=== PATIENT | male | born 1990 | race Asian ===

== ENCOUNTER 2022-09-16 13:52 | Emergency (ER) | payer OTHER ==
--- OUTSIDE RECORDS SUMMARY | 2022-09-16 13:57 | XMS REPORT | Continuity of Care Document ---
:[address] [facility] t Address [address] [place] [address] [address] [place] [address] Care Team Providers Name Role Phone PCP, PATIENT DOES NOT HAVE A Primary Care Physician Roma Javed Tadeo Attending Clinician Chiquis Kwok DO Attending Clinician [phone] Tiburcio DALTON, Ingrid Plascencia Attending Clinician CHIQUIS KWOK Attending Clinician Unavailable Ingrid Dey MD Admitting Clinician INGRID DEY Admitting Clinician Unavailable Payers Payer Name Policy Type Policy Number Effective Date Expiration Date S ource ICF [id number] 2020 00:00:00 2020 00:00 :00 Problems Condition Condition Condition Status Onset Resolution Last Treating Co mments Source Name Details Category Date Date Treatment Clinician Date Accidental Accidental Disease Active U nivers poisoning poisoning 2-16 ity of by [place] monoxide, monoxide, 00 Medi carolyn initial initial Branch encounter encounter Allergies, Adverse Reactions, Alerts Allergy Allergy Status Severity Reaction(s) Onset Inactive Treating Comm ents Source Name Type Date Date Clinician NO KNOWN Drug Active Univers ALLERGIE Class ity of S [facility] Social History Social Habit Start Date Stop Date Quantity Comments Source Sex Assigned At Universit y of [facility] Exposure to Not sure [facility] SARS-CoV-2 [facility] (event) [place] Alcohol intake 2020-11-05 2020-11-05 Ex-drinker [facility] 00:00:00 00:00:00 (finding) [facility] Smoking Status Start Date Stop Date Source Never smoker [facility] Medications Ordered Filled Start Stop Current Ordering Indication Dosage Frequency Signature Comments Components Source Medication Medication Date Date Medication? Clinician (SIG) Name Name enoxaparin Yes 40mg 40 mg, Unive rs (LOVENOX) 11-05 Subcutaneo ity of [place] 15:00[place] 00 First dose Medical on [facility] 11/05/20 at 0900, Until Discontinu ed, Routine ondansetron Yes 4mg 4 mg, Slow Univers (ZOFRAN 11-05 IV Push, ity of (PF)) 06:54: Q8HPRN, [place] injection 4 25 Starting Medi carolyn mg [facility] 11/05/20 at 0054, Until Discontinu ed, Routine, Nausea and Vomiting (N/V) albuterol Yes 2.5mg 2.5 mg, Univ ers (PROVENTIL) 11-05 Inhalation it y of 2.5 mg /3 06:01: , Q4HPRN, [place] as mL (0.083 48 Starting Medica l %) [facility] nebulizer 11/05/20 at solution 0001, 2.5 mg Until Discontinu ed, Routine, Shortness of Breath, Wheezing acetaminoph Yes 325mg 325 mg, Un isak en 11-05 Oral, ity of (TYLENOL) 06:01: Q6HPRN, [place] tablet 325 38 Starting Medic al mg [facility] 11/05/20 at 0001, Until Discontinu ed, Routine, Temp > 38.5 C iohexol 2020- No 120mL 120 mL, Unive rs (OMNIPAQUE 11-05 Intravenou it y of 350 02:54: 02:54 s, ONCE, 1 [place] BULK-150 00 :00 dose, Tue Medica l mL) 11/04/20 at Branch injection 2115, 120 mL Routine NaCl 0.9% 2020- No 1000mL at 999 Uni vers (NS) bolus 11-05 mL/hr, ity of infusion 00:00: 04:30 1,000 mL, [place] as 1,000 mL 00 :00 IV Medical Infusion, Branch ONCE, 1 dose, 11/04/20 at 1800, JENNIFER No known No Univers medications ity of [facility] Vital Signs Vital Name Observation Time Observation Value Comments Source Systolic blood 2020-11-05 16:13:40 125 mm[Hg] [facility] Diastolic blood 2020-11-05 16:13:40 80 mm[Hg] [facility] Heart rate 2020-11-05 16:13:40 84 /min [facility] Respiratory rate 2020-11-05 16:13:40 18 /min [facility] Oxygen saturation in 2020-11-05 16:13:40 100 /min [facility] Arterial blood by [facility] Pulse oximetry [place] Body temperature 2020-11-05 02:18:58 37.44 Mireya [facility] Body weight 2020-11-04 22:32:00 72.576 kg [facility] Procedures Procedure Date / Time Performed Performing Clinician [facility] e BASIC METABOLIC PANEL 2020-11-05 10:02:00 Randa Shearer [facility] (NA, K, CL, CO2, [facility] GLUCOSE, BUN, CREATININE, [place]) CBC WITH DIFF 2020-11-05 10:02:00 Randa Shearer [place] [facility] AC PANEL 21 + LACTIC 2020-11-05 06:56:00 Randa Shearer [facility] ACID [facility] BLOOD CULTURE SCREEN 2020-11-05 04:49:00 Javed Sanchez [facility] URINALYSIS 2020-11-05 03:55:00 Javed Sanchez [facility] CT ABDOMEN PELVIS W 2020-11-05 03:06:56 Javed Sanchez [facility] CONTRAST [facility] COVID-19 (ID NOW RAPID 2020-11-05 02:49:00 [facility] AC PANEL 21 + LACTIC 2020-11-05 00:05:00 Javed Sanchez [facility] CBC WITH DIFF 2020-11-05 00:01:00 Javed Sanchez [facility] EXTRA TUBE LT. GREEN 2020-11-05 00:01:00 Javed Sanchez [facility] CREATINE KINASE 2020-11-05 00:00:00 Javed Sanchez [facility] TROPONIN I 2020-11-05 00:00:00 Javed Sanchez [facility] COMP. METABOLIC PANEL 2020-11-05 00:00:00 Javed Sanchez [facility] ([id number]) [facility] CT HEAD WO CONTRAST 2020-11-04 23:49:20 Javed Sanchez [facility] XR CHEST 2 VW 2020-11-04 23:48:43 Javed Sanchez [facility] Encounters Start End Encounter Admission Attending Care Care Encounter Source Date/Time Date/Time Type Type Clinicians Facility Department ID 2020-11-04 2020-11-05 Emergency Javed Sanchez TRAUMA 1.2. [id number] [facility] 16:34:00 10:20:00 Chiquis Kwok [facility]. 1.13.10 [facility] [id number] [place] [id number] [place] [id number] Branch 2020-11-04 2020-11-05 Outpatient [facility] [id number] [facility] 16:34:00 10:20:00 [facility] Results Test Description Test Time Test Comments Results Result Comments Source BASIC METABOLIC PANEL (NA, K, CL, CO2, GLUCOSE, BUN, 2020-10 11:03:00 CREATININE, [place]) Test Item Value Reference Range Interpretation Comme nts NA (test code = 2641320816) 137 mmol/L 135-145 K (test code = 0512317125) 4.1 mmol/L 3.5-5 CL (test code = 3648468919) 103 mmol/L 98-108 CO2 TOTAL (test code = 27 mmol/L 23-31 6032227209) AGAP (test code = 2489395236) 2-16 BUN (test code = 1218965138) 13 mg/dL 7-23 GLUCOSE (test code = 5588931102) 103 mg/dL 70-110 CREATININE (test code = 1.03 mg/dL 0.6-1.25 1731824469) CALCIUM (test code = 3719933517) 9.2 mg/dL 8.6-10.6 eGFR Calculation (Non- mL/min/1.73m2 [place]) (test code = 4817411684) eGFR Calculation ( mL/min/1.73m2 [place]) (test code = 6771801907) HOLLY (test code = HOLLY) Association of Glomerular Filtration Rate (GFR) and Staging of Kidney Disease* + +--------- + ----+| GFR (mL/min/1.73 m2) ?| With Kidney Damage ?| ?Without Kidney Damage+ +--- + +| ?>90 ?| ?Stage one ?| ? Normal ?+ +-------- + -----+| ?60-89 ?| ?Stage two ?| ? Decreased GFR ? + +--------- + ----+| ?30-59 ?| ?Stage three ?| ? Stage three ? + +--------- + ----+| ?15-29 ?| ?Stage four ? | ? Stage four ?+ +-------- + -----+| ?<15 (or dialysis) ? ?| ?Stage five ? | ? Stage five ?+ +-------- + -----+ *Each stage assumes the associated GFR level has been in effect for at least three months. ?Stages 1 to 5, with or without kidney disease, indicate chronic kidney disease. Notes: Determination of stages one and two (with eGFR >59mL/min/1.73 m2) requires estimation of kidney damage for at least three months as defined by structural or functional abnormalities of the kidney, manifested by either:Pathological abnormalities or Markers of kidney damage (including abnormalities in the composition of the blood or urine or abnormalities in imaging tests). [facility] WITH [id number] 10:48:00 Test Item Value Reference Range Interpretation Comments WBC (test code = See_Comment [Automated message] 6690-2) The system [employer] generated this result transmitted ref erence range: 4.20 - 1 0.70 10*3/?L. The re ference range was not u sed to interpret this result as normal/abnor mal. RBC (test code = See_Comment [Automated message] 789-8) The system [employer] generated this result transmitted ref erence range: 4.26 - 5 .52 10*6/?L. The re ference range was not u sed to interpret this result as normal/abnor mal. HGB (test code = 13.9 g/dL 12.2-16.4 718-7) HCT (test code = 41.6 % 38.4-49.3 4544-3) MCV (test code = 86.8 fL 81.7-95.6 787-2) MCH (test code = 29.0 pg 26.1-32.7 785-6) MCHC (test code = 33.4 g/dL 31.2-35 786-4) RDW-SD (test code 39.3 fL 38.5-51.6 = 96232-3) RDW-CV (test code 12.4 % 12.1-15.4 = 788-0) PLT (test code = See_Comment [Automated message] 777-3) The system [employer] generated this result transmitted ref erence range: 150 - 32 8 10*3/?L. The re ference range was not u sed to interpret this result as normal/abnor mal. MPV (test code = 11.0 fL 9.8-13 34974-8) NRBC/100 WBC (test See_Comment [Automat ed message] code = 0722966708) The syste m which generated this result transmitted ref erence range: 0.0 - 10 .0 /100 WBCs. The refer ence range was not u sed to interpret this result as normal/abnor mal. NRBC x10^3 (test <0.01 See_Comment [Automated message] code = 6506099397) The syste m which generated this result transmitted ref erence range: 10*3/?L. The reference range was not used to interpr et this result as normal/abnormal . GRAN MAT (NEUT) % 62.2 % (test code = 770-8) IMM GRAN % (test 0.20 % code = 9158077212) LYMPH % (test code 24.9 % = 736-9) MONO % (test code 9.5 % = 5905-5) EOS % (test code = 2.7 % 713-8) BASO % (test code 0.5 % = 706-2) GRAN MAT 5.10 10*3/uL 1.99-6.95 x10^3(ANC) (test code = 9416821985) IMM GRAN x10^3 <0.03 0-0.06 (test code = 8126275900) LYMPH x10^3 (test 2.04 10*3/uL 1.09-3.23 code = 731-0) MONO x10^3 (test 0.78 10*3/uL 0.36-1.02 code = 742-7) EOS x10^3 (test 0.22 10*3/uL 0.06-0.53 code = 711-2) BASO x10^3 (test 0.04 10*3/uL 0.01-0.09 code = 704-7) [facility] + LACTIC [id number] 07:00:00 Test Item Value Reference Range Interpretation Comments PH (test code = 7.32-7.42 L 0802399494) PCO2 PERLITA (test code = See_Comment [Auto mated 5318085745) message] The sy stem which generated this result transmitted reference range : 41 - 51 mmHg. The reference range was not used to interpret this result as normal/abnormal . PO2 PERLITA (test code = See_Comment [Autom ated 5732262056) message] The sy stem which generated this result transmitted reference range : 25 - 40 mmHg. The reference range was not used to interpret this result as normal/abnormal . HCO3 PERLITA (test code = See_Comment [Auto mated 7130285486) message] The sy stem which generated this result transmitted reference range : 24 - 28 mEq/L. The reference range was not used to interpret this result as normal/abnormal . AC VBE(BEAKER) (test mEq/L code = 0979189601) THB PERLITA (test code = 14.4 g/dL 13.5-18 4699486661) %O2HB PERLITA (test code = 60.0 % 52-63 5356023643) %COHB PERLITA (test code = 0.9 % 0-1.5 9740872710) %METHB PERLITA (test code = 0.3 % 0.4-1.5 L 8884564385) VOL%O2 PERLITA (test code = 12.1 % 6-12 H 3523830971) NA (test code = 137 mmol/L 135-145 8828899634) K+ (test code = 4.3 mmol/L 3.5-5 6636555024) AC CA IONZ (test code = 4.90 mg/dL 4.5-5.3 5538080021) GLUCOSE (test code = 103 mg/dL 70-110 6151529718) LACTIC ACID (test code 1.25 mmol/L 0.5-2.2 = 6762243069) Lab Interpretation Abnormal (test code = 44568-7) [facility] 04:16[facility]00 Test Item Value Reference Range Interpretation Comments APPEARANCE (test code = Clear Clear 5219244991) COLOR (test code = Yellow Yellow 2237189938) PH (test code = 4.8-8.0 4868875650) SP GRAVITY (test code = >1.060 1.003-1.030 H 2579927989) GLU U QUAL (test code = Normal Normal 9338742570) BLOOD (test code = Negative Negative 2610589515) KETONES (test code = 5 mg/dL Negative A 1701440679) PROTEIN (test code = Negative Negative 2887-8) UROBILIN (test code = Normal Normal 8931769801) BILIRUBIN (test code = Negative Negative 1452438549) NITRITE (test code = Negative Negative 1333988878) LEUK VANESSA (test code = Negative Negative 1112745219) RBC/HPF (test code = See_Comment H [Autom ated message] 5799365197) The system [employer] generated this result transmitted ref erence range: 0 - 3 HP F. The reference range was not used to int erpret this result as normal/abnormal . WBC/HPF (test code = See_Comment [Autom ated message] 7829076308) The system [employer] generated this result transmitted ref erence range: 0 - 5 HP F. The reference range was not used to int erpret this result as normal/abnormal . BACTERIA (test code = Negative Negative 9619774748) MUCOUS (test code = Slight Negative LPF A 2347351681) SQ EPITH (test code = <1 See_Comment [Auto mated message] 0651855962) The system [employer] generated this result transmitted ref erence range: <=2 HPF. The reference range was not used to int erpret this result as normal/abnormal . Lab Interpretation (test Abnormal code = 43139-9) [facility] P[facility] W [id number] 03:59:43 No acute intra-abdominal abnormality. Preliminary Report Dictated by Resident: Denny Olvera MD., have reviewed this study and agree withthe above report.CT ABDOMEN PELVIS W CONTRAST HISTORY: Abdominal pain, fever Nausea/vomiting TECHNIQUE: Contrast-enhanced spiral CT of the abdomen and pelvis wasperformed with multiplanar reformatted images provided for review. COMPARISON: None FINDINGS: Suboptimal evaluation due to a paucity of intra-abdominal fat. LOWER THORAX: The lung bases are clear. No pericardial effusion orcardiomegaly. LIVER: Normal contour. Geographic focal fatty sparing is seen adjacent tothe falciform ligament. GALLBLADDER & BILIARY TREE: The g allbladder is unremarkable. PANCREAS: No focal lesion or ductal dilation. SPLEEN: No splenomegaly. ADRENALS: No adrenal nodules. KIDNEYS: Symmetric enhancement. No hydronephrosis, focal lesion or stones. PELVIS/BLADDER: The bladder is unremarkable. Normal prostate size. GASTROINTESTINAL: No evidence of bowel obstruction or perientericinflammation. The appendix is not fully visualized along its course. Thevisualized appendix is normal caliber and partially air-filled (601:27-29). PERITONEUM/RETROPERITONEUM: No free air or fluid. VASCULAR: ?Unremarkable. LYMPHATICS: A few small and probable reactive l ymph nodes are visualized inthe right lower quadrant (3:74). BONES AND SOFT TISSUES: No concerning bony lesion identified. [facility], Radiant Results Inft User - 11/04/2020 10:36 PM CSTCT ABDOMEN PELVIS W CONTRASTHISTORY: Abdominal pain, fever Nausea/vomiting TECHNIQUE: Contrast-enhanced spiral CT of the abdomen and pelvis wasperformed with multiplanar reformatted images provided for review.COMPARISON: NoneFINDINGS:Suboptimal evaluation due to a paucity of intra- abdominal fat.LOWER THORAX: The lung basesare clear. No pericardial effusion orcardiomegaly. LIVER: Normal contour. Geographic focal fatty sparing is seen adjacent tothe falciform ligament.GALLBLADDER & BILIARY TREE: The gallbladder is unremarkable.PANCREAS: No focal lesion or ductal dilation. SPLEEN: No splenomegaly. ADRENALS: No adrenalnodules. KIDNEYS: Symmetric enhancement. No hydronephrosis, focal lesion or stones. PELVIS/BLADDER: The bladder is unremarkable. Normal prostate size. GASTROINTESTINAL: No evidence of bowel obstructionor perientericinflammation. The appendix is not fully visualized along its course. Thevisualized appendix is normal caliber and partially air-filled (601:27-29).PERITONEUM/RETROPERITONEUM: No free air or fluid.VASCULAR: Unremarkable. LYMPHATICS: A few small and probable reactive lymph nodes are visualized inthe right lower quadrant (3:74).BONES AND SOFT TISSUES: No concerning bony lesion identified. IMPRESSIONNo acute intra- abdominal abnormality. Preliminary Report Dictated by Resident: Kimberly Sharma, Denny Russell MD., have reviewed this study and agree withthe above report.[facility] (ID NOW RAPID TESTING)2020-11-05 03:29:00 Test Item Value Reference Range Interpretation Comments SARS-CoV-2 Rapid ID NOW Not Detected Not Detected (test code = 53637-3) HOLLY (test code = HOLLY) ID NOW COVID-19 Assay is an isothermal nucleic acid amplification test intended for the qualitative detection of nucleic acid from SARS-CoV-2 viral RNA in nasopharyngeal (CLINICAL NURSING INTERN) specimens. It is used under Emergency Use Authorization (EUA) by FDA. The limit of detection (LOD) of the assay is 125 Genome Equivalents/mL. A positive result is indicative of the presence of SARS-CoV-2 RNA. ?Clinical correlation with patient history and other diagnostic information is necessary to determine patient infection status. A negative (Not Detected) result does not preclude SARS-CoV-2 infection. In patients with clinical symptoms and other tests that are consistent with SARS-CoV-2 infection, negative results should be treated as presumptive negative and a new specimen should be tested with alternative PCR molecular test. Invalid: Please collect a new specimen for repeat patient testing if clinically indicated. Lab Interpretation Normal (test code = 53455-2) [facility] WO [id number] 01:30:56 No acute intracranial hemorrhage or mass effect. Preliminary Report Dictated by Resident: RosieJohn Polanco MD., have reviewed this study and agree with theabove report.EXAM: CT HEAD WO CONTRAST HISTORY: 30 years -old Male with Mental status change, unknown cause COMPARISON: None available. TECHNIQUE: Axial CT of the head was performed and reconstructed at 5 mmintervals. Coronal andsagittal reformatted images were generated. FINDINGS: The ventricles and cerebral sulci are normal in caliber and configuration.No hydrocephalus, midline shift or pathological extra-axial fluidcollection is present. The basal cisterns are unremarkable. There is no acute intracranial hemorrhage or significant mass effect. Noparenchymal attenuation abnormality. The hercules-white matter differentiationis preserved. Mild paranasal sinus mucosal thickening. The calvarium and central skullbase are unremarkable. [facility], Radiant Results Inft User - 11/04/2020 7:32 PM CSTEXAM: CT HEAD WO CONTRASTHISTORY: 30 years -old Male with Mental status change, unknown cause COMPARISON: None available.TECHNIQUE: Axial CT of the head was performed and reconstructed at 5 mmintervals. Coronal and sagittal reformatted images were generated.FINDINGS:The ventricles and cerebral sulci are normal in caliber and configuration.No h ydrocephalus, midline shift or pathological extra-axial fluidcollection is present. The basal cisterns are unremarkable.There is no acute intracranial hemorrhage or significant mass effect. Noparenchymal attenuation abnormality. The hercules-white matter differentiationis preserved.Mild paranasal sinus mucosal thickening. The calvarium and central skullbase are unremarkable.IMPRESSIONNo acute intracranial hemorrhage or mass effect.Preliminary Report Dictated by Resident: John Chapman MD., have reviewed this study and agree with theabove report.[facility] I 2020-11-05 00:48:00 Test Item Value Reference Range Interpretation Comments TROPONIN I (test 0.006 ng/mL See_Comment [Automated code = 8915005580) message] The system which generated this result transmitted reference range : <=0.034. The reference range was not used to interpret this result as normal/abnormal . HOLLY (test code = Equal or Less than HOLLY) 0.034 ng/ml---Normal ?Note: Cardiac troponin begins to rise 3-4 hours after the onset of ischemia. Repeat in 4-6 hours if the sample was drawn within 3-4 hours of the onset of the symptom and found normal. Between 0.035 and 0.120 ng/mL--- Borderline. Questionable myocardial injury or necrosis ? ?Note: Serial measurement may be necessary to confirm or exclude the diagnosis of myocardial injury or necrosis; Clinical correlation (symptoms, EKGs, imaging studies, and others) required; Repeat in 4-6 hours if clinically indicated. ? Equal or Higher than 0.121 ng/mL---Abnormal. Myocardial Injury or Necrosis Likely ? Biotin has been reported to cause a negative bias, interpret results relative to patient's use of biotin. ? Lab Interpretation Normal (test code = 72103-3) [facility]. METABOLIC PANEL (90767)2020-11-05 00:33:00 Test Item Value Reference Range Interpretation Comments NA (test code = 139 mmol/L 135-145 3236502692) K (test code = 4.5 mmol/L 3.5-5 1779382030) CL (test code = 101 mmol/L 98-108 9041460037) CO2 TOTAL (test code = 29 mmol/L 23-31 7984824354) AGAP (test code = 2-16 7736204232) BUN (test code = 14 mg/dL 7-23 7122377776) GLUCOSE (test code = 109 mg/dL 70-110 8497698609) CREATININE (test code = 0.93 mg/dL 0.6-1.25 0609118259) TOTAL BILI (test code = 0.7 mg/dL 0.1-1.0 4505715025) CALCIUM (test code = 10.0 mg/dL 8.6-10.6 7288826182) T PROTEIN (test code = 8.4 g/dL 6.3-8.2 H 9260038000) ALBUMIN (test code = 5.1 g/dL 3.5-5 H 3377993949) ALK PHOS (test code = 60 U/L 34-122 8277157746) ALTv (test code = 24 U/L 550 1742-6) AST(SGOT) (test code = 31 U/L 13-40 7167824692) eGFR Calculation mL/min/1.73m2 (Non-) (test code = 3858543181) eGFR Calculation mL/min/1.73m2 () (test code = 2091153019) HOLLY (test code = HOLLY) Association of Glomerular Filtration Rate (GFR) and Staging of Kidney Disease* + --+ --+ ------+| GFR (mL/min/1.73 m2) ?| With Kidney Damage ?| ?Without Kidney Damage+ --------+ --------+ +| ?>90 ?| ?Stage one ?| ? Normal ?+ ---+ ---+ -------+| ?60-89 ?| ?Stage two ?| ? Decreased GFR ? + --+ --+ ------+| ?30-59 ?| ?Stage three ?| ? Stage three ? + --+ --+ ------+| ?15-29 ?| ?Stage four ? | ? Stage four ?+ ---+ ---+ -------+| ?<15 (or dialysis) ? ?| ?Stage five ? | ? Stage five ?+ ---+ ---+ -------+ *Each stage assumes the associated GFR level has been in effect for at least three months. ?Stages 1 to 5, with or without kidney disease, indicate chronic kidney disease. Notes: Determination of stages one and two (with eGFR >59mL/min/1.73 m2) requires estimation of kidney damage for at least three months as defined by structural or functional abnormalities of the kidney, manifested by either:Pathological abnormalities or Markers of kidney damage (including abnormalities in the composition of the blood or urine or abnormalities in imaging tests). Lab Interpretation Abnormal (test code = 95342-3) [facility]AT[facility] [id number] 00:33:00 Test Item Value Reference Range Interpretation Comments CK (test code = 8617984636) 215 U/L 33-194 H Lab Interpretation (test code = Abnormal 92122-0) [facility] CHEST 2 [id number] 00:14:09 No evidence of acute cardiopulmonary disease. Preliminary Report Dictated by Resident: Denny Chapman MD., have reviewed this study and agree withthe above report.EXAM: XR CHEST 2 VW 11/04/2020 5:22 PM HISTORY: 30 years-old male with exposre COMPARISON: CR,none TECHNIQUE: PAand lateral chest radiograph. FINDINGS: The lungs are clear. There is no focal consolidation, pleural effusion orpneumothorax. The cardiomediastinal silhouette is normal in size. No acute osseous abnormality. [facility], Radiant Results Inft User - 11/04/2020 6:15 PM CSTEXAM: XR CHEST 2 VW 11/04/2020 5:22 PMHISTORY: 30 years-old male with exposre COMPARISON: CR,none TECHNIQUE: PA and lateral chest radiograph.FINDINGS:The lungs are clear. There is no focal consolidation, pleural effusion orpneumothorax.The cardiomediastinal silhouette is normal in size.No acute osseous abnormality.IMPRESSIONNo evidence of acute cardiopulmonary disease.Preliminary Report Dictated by Resident: Denny Chapman MD., have reviewed this study and agree withthe above report.[facility] with [id number] 00:13:00 Test Item Value Reference Range Interpretation Comments WBC (test code = See_Comment H [Automated 2090-2) message] The system which generated this result transmit demetrio reference range : 4.20 - 10.70 10*3/?L. The reference range was not used to interpret this result as normal/abnormal . RBC (test code = See_Comment [Automated 529-8) message] The system which generated this result transmit demetrio reference range : 4.26 - 5.52 10*6/?L. The reference range was not used to interpret this result as normal/abnormal . HGB (test code = 15.2 g/dL 12.2-16.4 718-7) HCT (test code = 46.3 % 38.4-49.3 4544-3) MCV (test code = 86.2 fL 81.7-95.6 787-2) MCH (test code = 28.3 pg 26.1-32.7 785-6) MCHC (test code = 32.8 g/dL 31.2-35 786-4) RDW-SD (test code = 38.5 fL 38.5-51.6 98509-5) RDW-CV (test code = 12.3 % 12.1-15.4 788-0) PLT (test code = See_Comment [Automated 777-3) message] The system which generated this result transmit demetrio reference range : 150 - 328 10*3/ ?L. The reference range was not u sed to interpret th is result as normal/abnormal . MPV (test code = 10.3 fL 9.8-13 92886-0) NRBC/100 WBC (test See_Comment [Automat ed code = 9742955349) message] The system which generated this result transmit demetrio reference range : 0.0 - 10.0 /100 WBCs. The reference range was not used to interpret this result as normal/abnormal . NRBC x10^3 (test code <0.01 See_Comment [Auto mated = 7856305276) message] The system which generated this result transmit demetrio reference range : 10*3/?L. The reference range was not used to interpret this result as normal/abnormal . GRAN MAT (NEUT) % 85.9 % (test code = 770-8) IMM GRAN % (test code 0.40 % = 0211737928) LYMPH % (test code = 8.9 % 736-9) MONO % (test code = 4.4 % 5905-5) EOS % (test code = 0.1 % 713-8) BASO % (test code = 0.3 % 706-2) GRAN MAT x10^3(ANC) 11.65 10*3/uL 1.99-6.95 H (test code = 0586585542) IMM GRAN x10^3 (test 0.05 10*3/uL 0-0.06 code = 0259635917) LYMPH x10^3 (test code 1.21 10*3/uL 1.09-3.23 = 731-0) MONO x10^3 (test code 0.59 10*3/uL 0.36-1.02 = 742-7) EOS x10^3 (test code = <0.03 0.06-0.53 L 711-2) BASO x10^3 (test code 0.04 10*3/uL 0.01-0.09 = 704-7) Lab Interpretation Abnormal (test code = 89707-4) [facility] LACTIC [id number] 00:07:00 Test Item Value Reference Range Interpretation Comments PH (test code = 7.32-7.42 L 5801693657) PCO2 PERLITA (test code = See_Comment H [Auto mated 3359791216) message] The sy stem which generated this result transmitted reference range : 41 - 51 mmHg. The reference range was not used to interpret this result as normal/abnormal . PO2 PERLITA (test code = <16 See_Comment L [Autom ated 9853769185) message] The sy stem which generated this result transmitted reference range : 25 - 40 mmHg. The reference range was not used to interpret this result as normal/abnormal . HCO3 PERLITA (test code = See_Comment [Auto mated 4617465536) message] The sy stem which generated this result transmitted reference range : 24 - 28 mEq/L. The reference range was not used to interpret this result as normal/abnormal . AC VBE(BEAKER) (test mEq/L code = 7512850291) THB PERLITA (test code = 16.2 g/dL 13.5-18 7929790372) %O2HB PERLITA (test code = 28.4 % 52-63 L 0980823464) %COHB PERLITA (test code = 13.5 % 0-1.5 H 1232425695) %METHB PERLITA (test code = 0.3 % 0.4-1.5 L 1788757759) VOL%O2 PERLITA (test code = 6.4 % 6-12 7949018156) NA (test code = 139 mmol/L 135-145 0825772318) K+ (test code = 4.3 mmol/L 3.5-5 4929913242) AC CA IONZ (test code = 5.00 mg/dL 4.5-5.3 6442572887) GLUCOSE (test code = 111 mg/dL 70-110 H 5559496496) LACTIC ACID (test code 1.70 mmol/L 0.5-2.2 = 5288839193) Lab Interpretation Abnormal (test code = 75739-4) [facility]"
[2022-09-16 15:53] LABS: SARS-COV-2 RT PCR NEGATIVE (NEGATIVE)
--- NOTE | 2022-09-16 16:13 | RAD REPORT ---
EXAM DESCRIPTION: RAD - Chest Pa And Lat (2 Views) - 09/16/2022 4:04 pm CLINICAL HISTORY: COUGH COMPARISON: No comparisons FINDINGS: Lines: None. Lungs: No evidence of edema or pneumonia. Pleural: No significant pleural effusions or pneumothorax. Cardiac: The heart size is within normal limits. Mediastinum: Within normal limits. Bones: No acute fractures. Other: None IMPRESSION: No acute cardiopulmonary disease.
[2022-09-16] MEDS ORDERED: AMOX/K CLAV 875 MG TAB ONE (16:41)
[2022-09-16] MEDS ORDERED: OSELTAMIVIR 75 MG CAP PO ONE (16:41)
[2022-09-16] MEDS ORDERED: HYDROCODONE/CHLORPHEN 5 ML/OSYR ONE (16:41)
[2022-09-16] MEDS ORDERED: IBUPROFEN 400 MG TAB ONE (16:42)
--- NOTE | 2022-09-16 16:55 | ER ---
Nurse's Notes [facility] Name: Neri Donahue Age: 32 yrs Sex: Male : 1990 Arrival Date: 09/16/2022 Time: 13:55 Bed DIS3 Private MD: Diagnosis: Influenza due to identified novel influenza A virus with other respiratory manifestations;Acute streptococcal tonsillitis, unspecified Presentation: 09/16 15:06 Chief complaint: Spouse and/or significant other states: FEVER, COUGH, CONGESTION x3 bp DAYS. Coronavirus screen: congestion, cough unrelated to allergies, fever, Client presents with at least one sign or symptom that may indicate coronavirus-19. Standard/surgical mask placed on the client. Ebola Screen: No symptoms or risks identified at this time. Initial Sepsis Screen: Does the patient meet any 2 criteria? Temp <36.0*C (96.8*F)) or > 38.3*C (100.9*F). HR > 90 bpm. Initial Sepsis Screen: Does the patient have a suspected source of infection? Yes: Productive cough/pneumonia. Risk Assessment: Do you want to hurt yourself or someone else? Patient reports no desire to harm self or others. Onset of symptoms is unknown. 15:06 Method Of Arrival: Ambulatory bp 15:06 Acuity: MAZIN 3 bp Historical: - Allergies: 15:09 No Known Allergies; bp - Home Meds: 15:09 None [Active]; bp - PMHx: 15:09 None; bp - Immunization history:: Adult Immunizations up to date. - Social history:: Smoking status: Patient denies any tobacco usage or history of. Vital Signs: 15:06 BP 112 / 82; Pulse 109; Resp 18; Temp 103.3; Pulse Ox 100% ; Weight 62 kg; Height 5 ft. bp 8 in. (172.72 cm); 15:06 Body Mass Index 20.78 (62.00 kg, 172.72 cm) bp ED Course: 13:55 Patient arrived in ED. jj6 13:56 Lefty Knott PA is PHCP. cp 13:56 Kiara Qureshi MD is Attending Physician. cp 15:00 Strep Sent. 6 15:00 COVID-19/FLU A+B Sent. bc6 15:00 COVID swab sent to lab. Strep swab sent to lab. bc6 15:09 Triage completed. bp 16:03 XRAY Chest Pa And Lat (2 Views) In Process Unspecified. EDMS 17:25 No provider procedures requiring assistance completed. Patient did not have IV access ss during this emergency room visit. Administered Medications: 16:42 Drug: Tussionex Pennkinetic ER (chlorpheniramine-hydrocodone) Suspension 5 ml Route: PO;bp 16:42 Drug: Ibuprofen 800 mg Route: PO; bp 16:42 Drug: Tamiflu (oseltamivir) 75 mg Route: PO; bp 16:42 Drug: Augmentin (Amoxicillin-Clavulanate) 875 mg Route: PO; bp Outcome: 16:54 Discharge ordered by MD. cp 17:25 Discharged to home ambulatory. ss 17:25 Condition: good 17:25 Discharge instructions given to patient, family, Instructed on discharge instructions, follow up and referral plans. medication usage, Demonstrated understanding of instructions, follow-up care, medications, Prescriptions given X 4. 17:26 Patient left the ED. ss Signatures: Dispatcher [employer] EDWY Jennifer Keyes, RN RN ss Lefty Knott PA PA cp Peltier, Brian, RN RN Kimberly Chandler [email or web address] Elysia [facility]
--- NOTE | 2022-09-16 16:55 | EDPHYS ---
Physician Documentation [facility] Name: Neri Donahue Age: 32 yrs Sex: Male : 1990 Arrival Date: 09/16/2022 Time: 13:55 Bed DIS3 Private MD: ED Physician Kiara Qureshi HPI: 09/16 15:00 This 32 yrs old Male presents to ER via Ambulatory with complaints of Fever, cp Cough, Congestion, Sore Throat. 15:00 The patient reports fever, with an emergency department temperature of 103.3 degrees cp Fahrenheit. Onset: The symptoms/episode began/occurred 2 day(s) ago. Associated signs and symptoms: Pertinent positives: cough, runny nose, sore throat, Pertinent negatives: abdominal pain, diarrhea, headache, skin rash, vomiting. Severity of symptoms: in the emergency department the symptoms are unchanged despite home interventions. Historical: - Allergies: 15:09 No Known Allergies; bp - Home Meds: 15:09 None [Active]; bp - PMHx: 15:09 None; bp - Immunization history:: Adult Immunizations up to date. - Social history:: Smoking status: Patient denies any tobacco usage or history of. ROS: 15:05 Constitutional: Positive for body aches, fever, Negative for poor PO intake. cp 15:05 Eyes: Negative for injury, pain, redness, and discharge. cp 15:05 ENT: Positive for rhinorrhea, sore throat, Negative for drainage from ear(s), ear pain, difficulty swallowing, difficulty handling secretions. 15:05 Respiratory: Positive for cough, Negative for shortness of breath, wheezing. 15:05 Abdomen/GI: Negative for abdominal pain, vomiting, diarrhea, constipation. 15:05 Skin: Negative for rash. 15:05 Neuro: Positive for headache, Negative for altered mental status. 15:05 All other systems are negative. Exam: 15:10 Constitutional: The patient appears in no acute distress, alert, awake, non-toxic, well cp developed, well nourished, obviously ill. 15:10 Head/Face: Normocephalic, atraumatic. cp 15:10 Eyes: Periorbital structures: appear normal, Conjunctiva: normal, no exudate, no injection, Sclera: no appreciated abnormality, Lids and lashes: appear normal, bilaterally. 15:10 ENT: External ear(s): are unremarkable, Ear canal(s): are normal, clear, TM's: bulging, is not appreciated, bilaterally, dullness, bilaterally, erythema, is not appreciated, bilaterally, Nose: nasal drainage, that is minimal, Mouth: Lips: moist, Oral mucosa: moist, Posterior pharynx: Airway: no evidence of obstruction, patent, Tonsils: bilaterally enlarged, with erythema, Uvula: midline, swelling, is not appreciated, erythema, that is marked, exudate, is not appreciated. 15:10 Neck: ROM/movement: is normal, is supple, no meningismus, no nuchal rigidity. 15:10 Chest/axilla: Inspection: normal. 15:10 Cardiovascular: Rate: tachycardic, Rhythm: regular. 15:10 Respiratory: the patient does not display signs of respiratory distress, Respirations: normal, no use of accessory muscles, no retractions, labored breathing, is not present, Breath sounds: bronchial sounds, that are mild, are heard in the left posterior lower lobe, right posterior middle lobe and right posterior lower lobe, decreased breath sounds, are not appreciated, stridor, is not appreciated, + upper airway congestion. wheezing: is not appreciated. 15:10 Abdomen/GI: Exam negative for discomfort, distension, guarding, Inspection: abdomen appears normal. Vital Signs: 15:06 BP 112 / 82; Pulse 109; Resp 18; Temp 103.3; Pulse Ox 100% ; Weight 62 kg; Height 5 ft. bp 8 in. (172.72 cm); 15:06 Body Mass Index 20.78 (62.00 kg, 172.72 cm) bp MDM: 15:35 Differential diagnosis: viral Infection, bacterial infection, bronchitis, pneumonia cp gastroenteritis, meningitis. 16:30 Patient medically screened. cp 16:45 Data reviewed: vital signs, nurses notes, lab test result(s), radiologic studies, plain cp films. 16:45 Test interpretation: by ED physician or midlevel provider: plain radiologic studies. cp 16:54 Counseling: I had a detailed discussion with the patient and/or guardian regarding: the cp historical points, exam findings, and any diagnostic results supporting the discharge/admit diagnosis, lab results, radiology results. 16:54 ED course: Patient appears non-toxic and no signs of respiratory distress. Patient cp tolerating po meds. Will discharge to home for continued monitoring. 09/16 14:51 Order name: COVID-19/FLU A+B; Complete Time: 16:17 cp 09/16 16:17 Interpretation: Normal except: INFLUENZA A POSITIVE. 09/16 14:51 Order name: Strep; Complete Time: 15:57 cp 09/16 15:57 Interpretation: Reviewed. 09/16 14:51 Order name: XRAY Chest Pa And Lat (2 Views); Complete Time: 16:17 cp Administered Medications: 16:42 Drug: Tussionex Pennkinetic ER (chlorpheniramine-hydrocodone) Suspension 5 ml Route: PO;bp 16:42 Drug: Ibuprofen 800 mg Route: PO; bp 16:42 Drug: Tamiflu (oseltamivir) 75 mg Route: PO; bp 16:42 Drug: Augmentin (Amoxicillin-Clavulanate) 875 mg Route: PO; bp Disposition Summary: 09/16/22 16:54 Discharge Ordered Location: Home cp Problem: new cp Symptoms: have improved cp Condition: Stable cp Diagnosis - Influenza due to identified novel influenza A virus with other respiratory cp manifestations - Acute streptococcal tonsillitis, unspecified cp Followup: cp - With: Private Physician - When: 2 - 3 days - Reason: Worsening of condition Discharge Instructions: - Discharge Summary Sheet cp - Influenza, Adult cp - Strep Throat, Adult cp - Tonsillitis cp Forms: - Medication Reconciliation Form cp - Thank You Letter cp - Antibiotic Education cp - Prescription Opioid Use cp Prescriptions: - Bromfed DM 2-30-10 mg/5 mL Oral syrup - take 10 milliliter by ORAL route every 6 hours; 180 milliliter; Refills: 0, cp Product Selection Permitted - Augmentin 875-125 mg Oral Tablet - take 1 tablet by ORAL route every 12 hours for 10 days; 20 tablet; Refills: 0, cp Product Selection Permitted - Ibuprofen 800 mg Oral Tablet - take 1 tablet by ORAL route every 8 hours As needed take with food; 30 tablet; cp Refills: 0, Product Selection Permitted - Tamiflu 75 mg Oral Capsule - take 1 capsule by ORAL route every 12 hours for 5 days; 10 capsule; Refills: 0, cp Product Selection Permitted Addendum: 09/20/2022 18:24 STAFF ATTESTATION STATEMENT: I was immediately available onsite in the emergency s d2 department for consultation in the care of this patient. I did not see or examine this patient. Kiara Qureshi MD. Signatures: Dispatcher [employer] EDMS Lefty Knott PA PA cp Peltier, Brian, RN RN bp Titus, MD SHA Craig sd2 Corrections: (The following items were deleted from the chart) 09/17 03:56 09/16 15:10 Respiratory: the patient does not display signs of respiratory distress, cp Respirations: normal, no use of accessory muscles, no retractions, labored breathing, is not present, Breath sounds: decreased breath sounds, are not appreciated, stridor, is not appreciated, + upper airway congestion. wheezing: is not appreciated, cp
[2022-09-16 17:30] VITALS: BP 112/82; TEMP 103.3; O2SAT 100
== END 2022-09-16 17:26 | disposition home or self-care (01) ==
LOC: ER 13:52
DX: J10.1 Influenza due to other identified influenza virus with other respiratory manifestations (principal); J03.00 Acute streptococcal tonsillitis, unspecified; Z20.822 Contact with and (suspected) exposure to COVID-19
CPT/HCPCS: 87081; 0240U; 71046; 99284

== ENCOUNTER 2023-06-04 12:34 | Emergency (ER) | payer OTHER ==
--- OUTSIDE RECORDS SUMMARY | 2023-06-04 12:38 | XMS REPORT | Continuity of Care Document ---
:1990 Author Organization [facility] t Address [address] [place] [address] Care Team Providers Name Role Phone PCP, PATIENT DOES NOT HAVE A Primary Care Physician Roma Javed Tadeo Attending Clinician Chiquis Kwok DO Attending Clinician [phone] Tiburcio DALTON, Ingrid Plascencia Attending Clinician CHIQUIS KWOK Attending Clinician Unavailable Ingrid Dey MD Admitting Clinician INGRID DEY Admitting Clinician Unavailable Payers Payer Name Policy Type Policy Number Effective Date Expiration Date S ource ICF [id number] 2020 00:00:00 2020 00:00 :00 Problems Condition [...] Active Univers ALLERGIE Class ity of S [facility] Social History Social Habit Start Date Stop Date Quantity Comments Source Sex Assigned At Universit y of [facility] Exposure to Not sure [facility] SARS-CoV-[address] [facility] (event) [place] Alcohol intake 2020-11-05 2020-11-05 Ex-drinker [facility] 00:00:00 00:00:00 (finding) [facility] Smoking Status Start Date Stop Date Source Never smoker [facility] Medications Ordered Filled Start Stop Current Ordering Indication Dosage Frequency Signature Comments Components Source Medication Medication Date Date Medication? Clinician (SIG) Name Name enoxaparin Yes 40mg 40 mg, Unive rs (LOVENOX) 11-05 Subcutaneo ity of injection 15:00[place] 40 [place] 00 First dose Medical on [facility] 11/05/20 at 0900, Until Discontinu ed, Routine ondansetron Yes 4mg 4 mg, Slow Univers (ZOFRAN 11-05 IV Push, ity of (PF)) 06:54: Q8HPRN, [place] injection 4 25 Starting Medi carolyn mg [facility] 11/05/20 at 0054, Until Discontinu ed, Routine, Nausea and Vomiting (N/V) albuterol Yes 2.5mg 2.5 mg, Univ ers (PROVENTIL) 11-05 Inhalation it y of 2.5 mg /3 06:01: , Q4HPRN, [place] as mL (0.083 48 Starting Medica l %) [facility] nebulizer 11/05/20 at solution 0001, 2.5 mg Until Discontinu ed, Routine, Shortness of Breath, Wheezing acetaminoph Yes 325mg 325 mg, Un isak en 11-05 Oral, ity of (TYLENOL) 06:01: Q6HPRN, [place] tablet 325 38 Starting Medic al mg [facility] 11/05/20 at 0001, Until Discontinu ed, Routine, [...] No known No Univers medications ity of [facility] Vital Signs Vital Name Observation Time Observation Value Comments Source Systolic blood 2020-11-05 16:13:40 125 [facility] Diastolic blood 2020-11-05 16:13:40 80 mm[facility]Hg[facility] Heart rate 2020-11-05 16:13:40 84 /min [facility] Respiratory rate 2020-11-05 16:13:40 18 /min [facility] Oxygen saturation in 2020-11-05 16:13:40 100 /min [facility] Arterial blood by [facility] Pulse oximetry [place] Body temperature 2020-11-05 02:18:58 37.44 Mireya [facility] Body weight 2020-11-04 22:32:00 72.576 kg [facility] Procedures Procedure Date / Time Performed Performing Clinician [facility] e BASIC METABOLIC PANEL 2020-11-05 10:02:00 Randa Shearer [facility] (NA, K, CL, CO2, [facility] GLUCOSE, BUN, CREATININE, [place]) CBC WITH DIFF 2020-11-05 10:02:00 Randa Shearer [place] [facility] AC PANEL 21 + LACTIC 2020-11-05 06:56:00 Randa Shearer [facility] ACID [facility] BLOOD CULTURE SCREEN 2020-11-05 04:49:00 Javed Sanchez [facility] URINALYSIS 2020-11-05 03:55:00 Javed Sanchez [facility] CT ABDOMEN PELVIS W 2020-11-05 03:06:56 Javed Sanchez [facility] CONTRAST [facility] COVID-19 (ID NOW RAPID 2020-11-05 02:49:00 [facility] AC PANEL 21 + LACTIC 2020-11-05 00:05:00 Javed Sanchez [facility] CBC WITH DIFF 2020-11-05 00:01:00 Javed Sanchez [facility] EXTRA TUBE LT. GREEN 2020-11-05 00:01:00 Javed Sanchez [facility] CREATINE KINASE 2020-11-05 00:00:00 Javed Sanchez [facility] TROPONIN I 2020-11-05 00:00:00 Javed Sanchez [facility] COMP. METABOLIC PANEL 2020-11-05 00:00:00 Javed Sanchez [facility] ([id number]) [facility] CT HEAD WO CONTRAST 2020-11-04 23:49:20 Javed Sanchez [facility] XR CHEST 2 VW 2020-11-04 23:48:43 Javed Sanchez [facility] Encounters Start End Encounter Admission Attending Care Care Encounter Source Date/Time Date/Time Type Type Clinicians Facility Department ID 2020-11-04 2020-11-05 Emergency Javed Sanchez TRAUMA 1.2. [id number] [facility] 16:34:00 10:20:00 Chiquis Kwok [id number] [id number] [place] [id number] [place] [address] Branch 2020-11-04 2020-11-05 Outpatient [facility] [id number] [facility] 16:34:00 [facility]20[facility] Test Description Test Time Test Comments Results Result Comments Source BASIC METABOLIC PANEL (NA, K, CL, CO2, GLUCOSE, BUN, 2020-10 11:03:00 CREATININE, [place]) Test Item Value Reference Range Interpretation Comme nts NA (test code = 2305433783) 137 mmol/L 135-145 K (test code = 0600006073) 4.1 mmol/L 3.5-5 CL (test code = 1260655037) 103 mmol/L 98-108 CO2 TOTAL (test code = 27 mmol/L 23-31 3606561500) AGAP (test code = 0856681762) 2-16 BUN (test code = 9422449631) 13 mg/dL 7-23 GLUCOSE (test code = 0611810339) 103 mg/dL 70-110 CREATININE (test code = 1.03 mg/dL 0.6-1.25 7297985968) CALCIUM (test code = 6545641283) 9.2 mg/dL 8.6-10.6 eGFR Calculation (Non- mL/min/1.73m2 Maldivian) (test code = 7272186187) eGFR Calculation ( mL/min/1.73m2 [place]ian) (test code = 1073578213) HOLLY (test code = HOLLY) Association of [...] or urine or abnormalities in imaging tests). [facility] WITH [id number] 10:48:00 Test Item Value Reference Range Interpretation Comments WBC (test code = See_Comment [Automated message] 6690-2) The system [employer] generated this result transmitted ref erence range: 4.20 - 1 0.70 10*3/?L. The re ference range was not u sed to interpret this result as normal/abnor mal. RBC (test code = See_Comment [Automated message] 789-8) The system [employer] generated this result transmitted ref erence range: [...] RDW-SD (test code 39.3 fL 38.5-51.6 = 76511-0) RDW-CV (test code 12.4 % 12.1-15.4 = 788-0) PLT (test code = See_Comment [Automated message] 777-3) The system [employer] generated this result transmitted ref erence range: 150 - 32 8 10*3/?L. The re ference range was not u sed to interpret this result as normal/abnor mal. MPV (test code = 11.0 fL 9.8-13 31430-7) NRBC/100 WBC (test See_Comment [Automat ed message] code = 1782636087) The syste m which generated this result transmitted ref erence range: 0.0 - 10 .0 /100 WBCs. The refer ence range was not u sed to interpret this result as normal/abnor mal. NRBC x10^3 (test <0.01 See_Comment [Automated message] code = 7839077565) The syste m which generated this result transmitted ref erence range: 10*3/?L. The reference range was not used to interpr et this result as normal/abnormal . GRAN MAT (NEUT) % 62.2 % (test code = 770-8) IMM GRAN % (test 0.20 % code = 3292582351) LYMPH % (test code 24.9 % = 736-9) MONO % (test code 9.5 % = 5905-5) EOS % (test code = 2.7 % 713-8) BASO % (test code 0.5 % = 706-2) GRAN MAT 5.10 10*3/uL 1.99-6.95 x10^3(ANC) (test code = 6103706381) IMM GRAN x10^3 <0.03 0-0.06 (test code = 9706795420) LYMPH x10^3 (test 2.04 10*3/uL 1.09-3.23 code = 731-0) MONO x10^3 (test 0.78 10*3/uL 0.36-1.02 code = 742-7) EOS x10^3 (test 0.22 10*3/uL 0.06-0.53 code = 711-2) BASO x10^3 (test 0.04 10*3/uL 0.01-0.09 code = 704-7) [facility] [id number] 07:00:00 Test Item Value Reference Range Interpretation Comments PH (test code = 7.32-7.42 L 4037099583) PCO2 PERLITA (test code = See_Comment [Auto mated 7131089591) message] The sy stem which generated this result transmitted reference range : 41 - 51 mmHg. The reference range was not used to interpret this result as normal/abnormal . PO2 PERLITA (test code = See_Comment [Autom ated 6235863458) message] The sy stem which generated this result transmitted reference range : 25 - 40 mmHg. The reference range was not used to interpret this result as normal/abnormal . HCO3 PERLITA (test code = See_Comment [Auto mated 7097539988) message] The sy stem which generated this result transmitted reference range : 24 - 28 mEq/L. The reference range was not used to interpret this result as normal/abnormal . AC VBE(BEAKER) (test mEq/L code = 7761259642) THB PERLITA (test code = 14.4 g/dL 13.5-18 1487915077) %O2HB PERLITA (test code = 60.0 % 52-63 3503790667) %COHB PERLITA (test code = 0.9 % 0-1.5 8091419062) %METHB PERLITA (test code = 0.3 % 0.4-1.5 L 7937253392) VOL%O2 PERLITA (test code = 12.1 % 6-12 H 4309321506) NA (test code = 137 mmol/L 135-145 9909858886) K+ (test code = 4.3 mmol/L 3.5-5 0601904788) AC CA IONZ (test code = 4.90 mg/dL 4.5-5.3 4828227665) GLUCOSE (test code = 103 mg/dL 70-110 5189667395) LACTIC ACID (test code 1.25 mmol/L 0.5-2.2 = 9337726847) Lab Interpretation Abnormal (test code = 99362-3) [facility]16:00 Test Item Value Reference Range Interpretation Comments APPEARANCE (test code = Clear Clear 5485590159) COLOR (test code = Yellow Yellow 8056376689) PH (test code = 4.8-8.0 8084271829) SP GRAVITY (test code = >1.060 1.003-1.030 H 2918203584) GLU U QUAL (test code = Normal Normal 9732796819) BLOOD (test code = Negative Negative 0099379542) KETONES (test code = 5 mg/dL Negative A 9797843397) PROTEIN (test code = Negative Negative 2887-8) UROBILIN (test code = Normal Normal 4601586043) BILIRUBIN (test code = Negative Negative 0476803690) NITRITE (test code = Negative Negative 3893098539) LEUK VANESSA (test code = Negative Negative 0341483009) RBC/HPF (test code = See_Comment H [Autom ated message] 2715096862) The system [employer] generated this result transmitted ref erence range: 0 - 3 HP F. The reference range was not used to int erpret this result as normal/abnormal . WBC/HPF (test code = See_Comment [Autom ated message] 9863000033) The system [employer] generated this result transmitted ref erence range: 0 - 5 HP F. The reference range was not used to int erpret this result as normal/abnormal . BACTERIA (test code = Negative Negative 4953077771) MUCOUS (test code = Slight Negative LPF A 7561702970) SQ EPITH (test code = <1 See_Comment [Auto mated message] 1012850220) The system [employer] generated this result transmitted ref erence range: <=2 HPF. The reference range was not used to int erpret this result as normal/abnormal . Lab Interpretation (test Abnormal code = 38244-5) [facility] PEL[facility] W [id number] 03:59:43 No acute intra-abdominal abnormality. Preliminary Report [...] reviewed this study and agree withthe above report.[facility] Center[facility]OVID[facility] (ID NOW RAPID TESTING)2020-11-05 03:29:00 Test Item Value Reference Range Interpretation Comments SARS-CoV-2 Rapid ID NOW Not Detected Not Detected (test code = 94718-4) HOLLY (test code = HOLLY) ID NOW COVID-19 Assay is an isothermal nucleic acid amplification test intended for the qualitative detection of nucleic acid from SARS-CoV-2 viral RNA in nasopharyngeal (DECISION SCIENCE ANALYST) specimens. It is used under Emergency Use [...] indicated. Lab Interpretation Normal (test code = 19448-9) [facility] WO [id number] 01:30:56 No acute intracranial hemorrhage or mass [...] The calvarium and central skullbase are unremarkable. [facility], Radiant Results Inft User - 11/04/2020 7:32 [...] reviewed this study and agree with theabove report.[facility] I 2020-11-05 00:48:00 Test Item Value Reference Range Interpretation Comments TROPONIN I (test 0.006 ng/mL See_Comment [Automated code = 6072824922) message] The system which generated this result [...] ? Lab Interpretation Normal (test code = 77398-8) [facility]. METABOLIC PANEL (10618)2020-11-05 00:33:00 Test Item Value Reference Range Interpretation Comments NA (test code = 139 mmol/L 135-145 9301353699) K (test code = 4.5 mmol/L 3.5-5 6662875844) CL (test code = 101 mmol/L 98-108 9099762677) CO2 TOTAL (test code = 29 mmol/L 23-31 9759681830) AGAP (test code = 2-16 3984722416) BUN (test code = 14 mg/dL 7-23 0102638685) GLUCOSE (test code = 109 mg/dL 70-110 7963967017) CREATININE (test code = 0.93 mg/dL 0.6-1.25 3964112103) TOTAL BILI (test code = 0.7 mg/dL 0.1-1.0 4864912801) CALCIUM (test code = 10.0 mg/dL 8.6-10.6 3100454231) T PROTEIN (test code = 8.4 g/dL 6.3-8.2 H 0457609347) ALBUMIN (test code = 5.1 g/dL 3.5-5 H 0878398444) ALK PHOS (test code = 60 U/L 34-122 4451728914) ALTv (test code = 24 U/L 550 1742-6) AST(SGOT) (test code = 31 U/L 13-40 2962907324) eGFR Calculation mL/min/1.73m2 (Non-) (test code = 8699914676) eGFR Calculation mL/min/1.73m2 () (test code = 7062440360) HOLLY (test code = HOLLY) Association of [...] tests). Lab Interpretation Abnormal (test code = 56625-3) [facility] Center[facility]AT[facility] [id number] 00:33:00 Test Item Value Reference Range Interpretation Comments CK (test code = 1940383559) 215 U/L 33-194 H Lab Interpretation (test code = Abnormal 03988-7) [facility] CenterXR CHEST 2 [id number] 00:14:09 No evidence of acute cardiopulmonary disease. [...] reviewed this study and agree withthe above report.[facility] with [id number] 00:13:00 Test Item Value Reference Range Interpretation Comments WBC (test code = See_Comment H [Automated 3090-2) message] The system which generated this result transmit demetrio reference range : 4.20 - 10.70 10*3/?L. The reference range was not used to interpret this result as normal/abnormal . RBC (test code = See_Comment [Automated 479-8) message] The system which generated this result [...] RDW-SD (test code = 38.5 fL 38.5-51.6 04920-3) RDW-CV (test code = 12.3 % 12.1-15.4 788-0) PLT (test code = See_Comment [Automated 777-3) message] The system which generated this result transmit demetrio reference range : 150 - 328 10*3/ ?L. The reference range was not u sed to interpret th is result as normal/abnormal . MPV (test code = 10.3 fL 9.8-13 31362-7) NRBC/100 WBC (test See_Comment [Automat ed code = 0283583271) message] The system which generated this result transmit demetrio reference range : 0.0 - 10.0 /100 WBCs. The reference range was not used to interpret this result as normal/abnormal . NRBC x10^3 (test code <0.01 See_Comment [Auto mated = 0819137727) message] The system which generated this result transmit demetrio reference range : 10*3/?L. The reference range was not used to interpret this result as normal/abnormal . GRAN MAT (NEUT) % 85.9 % (test code = 770-8) IMM GRAN % (test code 0.40 % = 8916474942) LYMPH % (test code = 8.9 % 736-9) MONO % (test code = 4.4 % 5905-5) EOS % (test code = 0.1 % 713-8) BASO % (test code = 0.3 % 706-2) GRAN MAT x10^3(ANC) 11.65 10*3/uL 1.99-6.95 H (test code = 9842906305) IMM GRAN x10^3 (test 0.05 10*3/uL 0-0.06 code = 9110745934) LYMPH x10^3 (test code 1.21 10*3/uL 1.09-3.23 = 731-0) MONO x10^3 (test code 0.59 10*3/uL 0.36-1.02 = 742-7) EOS x10^3 (test code = <0.03 0.06-0.53 L 711-2) BASO x10^3 (test code 0.04 10*3/uL 0.01-0.09 = 704-7) Lab Interpretation Abnormal (test code = 07920-5) [facility] + LACTIC [id number] 00:07:00 Test Item Value Reference Range Interpretation Comments PH (test code = 7.32-7.42 L 7810706102) PCO2 PERLITA (test code = See_Comment H [Auto mated 3030788148) message] The sy stem which generated this result transmitted reference range : 41 - 51 mmHg. The reference range was not used to interpret this result as normal/abnormal . PO2 PERLITA (test code = <16 See_Comment L [Autom ated 6095298923) message] The sy stem which generated this result transmitted reference range : 25 - 40 mmHg. The reference range was not used to interpret this result as normal/abnormal . HCO3 PERLITA (test code = See_Comment [Auto mated 7409740916) message] The sy stem which generated this result transmitted reference range : 24 - 28 mEq/L. The reference range was not used to interpret this result as normal/abnormal . AC VBE(BEAKER) (test mEq/L code = 6874962296) THB PERLITA (test code = 16.2 g/dL 13.5-18 0780327771) %O2HB PERLITA (test code = 28.4 % 52-63 L 0186035427) %COHB PERLITA (test code = 13.5 % 0-1.5 H 9864529179) %METHB PERLITA (test code = 0.3 % 0.4-1.5 L 0147990590) VOL%O2 PERLITA (test code = 6.4 % 6-12 1195435929) NA (test code = 139 mmol/L 135-145 5012559981) K+ (test code = 4.3 mmol/L 3.5-5 6166035085) AC CA IONZ (test code = 5.00 mg/dL 4.5-5.3 5022281853) GLUCOSE (test code = 111 mg/dL 70-110 H 1215652018) LACTIC ACID (test code 1.70 mmol/L 0.5-2.2 = 4627215301) Lab Interpretation Abnormal (test code = 93712-2) [facility]"
--- NOTE | 2023-06-04 12:55 | ER ---
Nurse's Notes [facility] Name: Neri Donahue Age: 33 yrs Sex: Male : 1990 Arrival Date: 06/04/2023 Time: 12:34 Bed 12 Private MD: Diagnosis: Acute pharyngitis, unspecified Presentation: 06/04 12:44 Chief complaint: Patient states: Sore throat X 2 days. Pt reports it becoming more ld1 swollen and iritated. Coronavirus screen: At this time, the client does not indicate any symptoms associated with coronavirus-19. Ebola Screen: No symptoms or risks identified at this time. Initial Sepsis Screen: Does the patient meet any 2 criteria? No. Patient's initial sepsis screen is negative. Does the patient have a suspected source of infection? No. Patient's initial sepsis screen is negative. Risk Assessment: Do you want to hurt yourself or someone else? Patient reports no desire to harm self or others. Onset of symptoms was June 04, 2023 at 12:45. 12:44 Method Of Arrival: Ambulatory ld1 12:44 Acuity: MAZIN 4 ld1 Triage Assessment: 12:45 General: Appears in no apparent distress. comfortable, Behavior is calm, cooperative, ld1 appropriate for age. Pain: Denies pain. EENT: Throat is reddened Reports difficulty swallowing. Neuro: Level of Consciousness is awake, alert, obeys commands, Oriented to person, place, time, situation. Cardiovascular: Capillary refill < 3 seconds Patient's skin is warm and dry. Respiratory: Airway is patent Respiratory effort is even, unlabored. GI: Abdomen is flat, non-distended. : No signs and/or symptoms were reported regarding the genitourinary system. Derm: No signs and/or symptoms reported regarding the dermatologic system. Musculoskeletal: No signs and/or symptoms reported regarding the musculoskeletal system. Historical: - Allergies: 12:45 No Known Allergies; ld1 - Home Meds: 12:45 None [Active]; ld1 - PMHx: 12:45 None; ld1 - PSHx: 12:45 None; ld1 - Immunization history:: Adult Immunizations up to date. - Social history:: Smoking status: Patient denies any tobacco usage or history of. Patient/guardian denies using alcohol. Screenin:45 [facility] ED Fall Risk Assessment (Adult) History of falling in the last 3 months, ld1 including since admission No falls in past 3 months (0 pts). Abuse screen: Denies threats or abuse. Denies injuries from another. Nutritional screening: No deficits noted. Tuberculosis screening: No symptoms or risk factors identified. Assessment: 12:45 Reassessment: See triage assessment. ld1 Vital Signs: 12:44 BP 116 / 79; Pulse 70; Resp 18; Temp 98.6(O); Pulse Ox 96% on R/A; Weight 62 kg; Height ld1 5 ft. 8 in. ; Pain 0/10; 13:15 BP 117 / 89; Pulse 71; Resp 18; Pulse Ox 100% on R/A; hb 12:44 Body Mass Index 20.78 (62.00 kg, 172.72 cm) ld1 12:44 Pain Scale: Adult ld1 ED Course: 12:40 Patient arrived in ED. mg5 12:42 Madison Leon FNP-C is PHCP. snw 12:42 Lefty Adames MD is Attending Physician. snw 12:45 Triage completed. ld1 12:45 Arm band placed on right wrist. ld1 12:45 Patient has correct armband on for positive identification. Placed in gown. Bed in low ld1 position. Call light in reach. Side rails up X2. Pulse ox on. NIBP on. Door closed. Noise minimized. Warm blanket given. 12:45 No provider procedures requiring assistance completed. ld1 13:15 Roseanne Feng RN is Primary Nurse. hb 13:15 IV discontinued, intact, bleeding controlled, No redness/swelling at site. hb Administered Medications: No medications were administered Medication: 12:45 VIS not applicable for this client. ld1 Outcome: 12:54 Discharge ordered by . snw 13:15 Discharged to home ambulatory. hb 13:15 Condition: stable 13:15 Discharge instructions given to patient, Instructed on discharge instructions, follow up and referral plans. medication usage, Demonstrated understanding of instructions, follow-up care, medications, Prescriptions given X 3. 13:16 Patient left the ED. hb Signatures: Madison Leon FNP-C [employer] [facility] Roseanne Feng RN RN hb Rosana Junior RN RN ld1 Nata Shah mg5
--- NOTE | 2023-06-04 12:55 | EDPHYS ---
Physician Documentation [facility] Name: Neri Donahue Age: 33 yrs Sex: Male : 1990 Arrival Date: 06/04/2023 Time: 12:34 Bed 12 Private MD: ED Physician Lefty Adames HPI: 06/04 12:56 This 33 yrs old Male presents to ER via Ambulatory with complaints of Difficulty snw Swallowing. 12:56 The patient presents with sore throat. The patient describes throat pain as raw, snw scratchy. Onset: The symptoms/episode began/occurred acutely, 2 day(s) ago, and became persistent. Associated signs and symptoms: Pertinent positives: rhinorrhea. The patient has not experienced similar symptoms in the past. The patient has not recently seen a physician. Historical: - Allergies: 12:45 No Known Allergies; ld1 - Home Meds: 12:45 None [Active]; ld1 - PMHx: 12:45 None; ld1 - PSHx: 12:45 None; ld1 - Immunization history:: Adult Immunizations up to date. - Social history:: Smoking status: Patient denies any tobacco usage or history of. Patient/guardian denies using alcohol. ROS: 12:56 Constitutional: Negative for fever, chills, and weight loss, Eyes: Negative for injury, snw pain, redness, and discharge, ENT: Negative for injury and discharge, + pain Neck: Negative for injury, pain, and swelling, Cardiovascular: Negative for chest pain, palpitations, and edema, Respiratory: Negative for shortness of breath, cough, wheezing, and pleuritic chest pain, Abdomen/GI: Negative for abdominal pain, nausea, vomiting, diarrhea, and constipation, Back: Negative for injury and pain, : Negative for injury, bleeding, discharge, and swelling, MS/Extremity: Negative for injury and deformity, Skin: Negative for injury, rash, and discoloration, Neuro: Negative for headache, weakness, numbness, tingling, and seizure, Psych: Negative for depression, anxiety, suicide ideation, homicidal ideation, and hallucinations. Exam: 12:56 Constitutional: This is a well developed, well nourished patient who is awake, alert, snw and in no acute distress. Head/Face: Normocephalic, atraumatic. Eyes: Pupils equal round and reactive to light, extra-ocular motions intact. Lids and lashes normal. Conjunctiva and sclera are non-icteric and not injected. Cornea within normal limits. Periorbital areas with no swelling, redness, or edema. Neck: Trachea midline, no thyromegaly or masses palpated, and no cervical lymphadenopathy. Supple, full range of motion without nuchal rigidity, or vertebral point tenderness. No Meningismus. Chest/axilla: Normal chest wall appearance and motion. Nontender with no deformity. No lesions are appreciated. Cardiovascular: Regular rate and rhythm with a normal S1 and S2. No gallops, murmurs, or rubs. Normal PMI, no JVD. No pulse deficits. Respiratory: Lungs have equal breath sounds bilaterally, clear to auscultation and percussion. No rales, rhonchi or wheezes noted. No increased work of breathing, no retractions or nasal flaring. Abdomen/GI: Soft, non-tender, with normal bowel sounds. No distension or tympany. No guarding or rebound. No evidence of tenderness throughout. Back: No spinal tenderness. No costovertebral tenderness. Full range of motion. Skin: Warm, dry with normal turgor. Normal color with no rashes, no lesions, and no evidence of cellulitis. MS/ Extremity: Pulses equal, no cyanosis. Neurovascular intact. Full, normal range of motion. Neuro: Awake and alert, GCS 15, oriented to person, place, time, and situation. Cranial nerves II-XII grossly intact. Motor strength 5/5 in all extremities. Sensory grossly intact. Cerebellar exam normal. Normal gait. Psych: Awake, alert, with orientation to person, place and time. Behavior, mood, and affect are within normal limits. 12:56 ENT: External ear(s): are unremarkable, Ear canal(s): are normal, Nose: is normal, Mouth: is normal, Posterior pharynx: swelling, that is moderate, erythema, that is moderate, Voice: is normal. Vital Signs: 12:44 BP 116 / 79; Pulse 70; Resp 18; Temp 98.6(O); Pulse Ox 96% on R/A; Weight 62 kg; Height ld1 5 ft. 8 in. ; Pain 0/10; 13:15 BP 117 / 89; Pulse 71; Resp 18; Pulse Ox 100% on R/A; hb 12:44 Body Mass Index 20.78 (62.00 kg, 172.72 cm) ld1 12:44 Pain Scale: Adult ld1 MDM: 12:47 Patient medically screened. candida 12:55 Differential diagnosis: Allergic rhinitis, apthous ulcer, gastroesophageal reflux snw disease, group A strep tonsillitis, laryngitis, pharyngitis. Data reviewed: vital signs, nurses notes. I considered the following discharge prescriptions or medication management in the emergency department Medications were administered in the Emergency Department. See MAR. Counseling: I had a detailed discussion with the patient and/or guardian regarding the historical points, exam findings, and any diagnostic results supporting the discharge/admit diagnosis, the need for outpatient follow up, for definitive care, to return to the emergency department if symptoms worsen or persist or if there are any questions or concerns that arise at home. Special discussion: Based on the history and exam findings, there is no indication for further emergent testing or inpatient evaluation. I discussed with the patient/guardian the need to see the primary care provider for further evaluation of the symptoms. Administered Medications: No medications were administered Disposition Summary: 06/04/23 12:54 Discharge Ordered Location: Home snw Condition: Stable snw Diagnosis - Acute pharyngitis, unspecified snw Followup: snw - With: Emergency Department - When: As needed - Reason: Worsening of condition Followup: snw - With: Private Physician - When: 2 - 3 days - Reason: Recheck today's complaints, Continuance of care, Re-evaluation by your physician Discharge Instructions: - Discharge Summary Sheet snw - Pharyngitis snw - Rehydration, Adult snw Forms: - Work release form snw - Medication Reconciliation Form snw - Thank You Letter snw - Antibiotic Education snw - Prescription Opioid Use snw - Patient Portal Instructions snw - Leadership Thank You Letter snw Prescriptions: - Zyrtec 10 mg Oral Tablet - take 1 tablet by ORAL route once daily As needed; 20 tablet; Refills: 0, snw Product Selection Permitted - Pepcid 20 mg Oral Tablet - take 1 tablet by ORAL route once daily; 20 tablet; Refills: 0, Product snw Selection Permitted - Zithromax 500 mg Oral Tablet - take 1 tablet by ORAL route once daily for 5 days; 5 tablet; Refills: 0, snw Product Selection Permitted Signatures: Lefty Adames MD MD cha Waters, Shelly, MINE ENGINEERING SUPERVISOR-C MINE ENGINEERING SUPERVISOR-Csnw Rosana Junior RN RN ld1
[2023-06-04 13:21] VITALS: TEMP 98.6
[2023-06-04] MEDS ORDERED: dexAMETHasone 10 MG/ML VIAL ONE (13:22)
[2023-06-04] MEDS ORDERED: AZITHROMYCIN 250 MG TAB ONE (13:22)
[2023-06-04 13:23] VITALS: BP 117/89; O2SAT 100
== END 2023-06-04 13:16 | disposition home or self-care (01) ==
LOC: ER 12:34
DX: J02.9 Acute pharyngitis, unspecified (principal)
CPT/HCPCS: 99283; J1100

== ENCOUNTER 2023-07-08 09:02 | Emergency (ER) | payer OTHER, SELFPAY ==
--- OUTSIDE RECORDS SUMMARY | 2023-07-08 09:08 | XMS REPORT | Continuity of Care Document ---
:1990 Author Organization [facility] t Address [address] [place] [address] Care Team Providers Name Role Phone PCP, PATIENT DOES NOT HAVE A Primary Care Physician Roma Javed Tadeo Attending Clinician Chiquis Kwok DO Attending Clinician [phone] Tiburcio DALTON, Ingrid Plascencia Attending Clinician CHIQUIS KWOK Attending Clinician Unavailable Ingrid Dey MD Admitting Clinician INGRID DEY Admitting Clinician Unavailable Payers Payer Name Policy Type Policy Number Effective Date Expiration Date S ource ICF [id number] 2020 00:00:00 2020 00:00 :00 Problems Condition [...] Active Univers ALLERGIE Class ity of S [facility] Social History Social Habit Start Date Stop Date Quantity Comments Source Sex Assigned At Universit y of [facility] Exposure to Not sure [facility] SARS-CoV-2 [facility] (event) [place] Alcohol intake 2020-11-05 2020-11-05 Ex-drinker [facility] 00:00:00 00:00:00 (finding) [facility] Smoking Status Start Date Stop Date Source Never smoker [facility] Medications Ordered Filled Start Stop Current Ordering Indication Dosage Frequency Signature Comments Components Source Medication Medication Date Date Medication? Clinician (SIG) Name Name enoxaparin Yes 40mg 40 mg, Unive rs (LOVENOX) 11-05 Subcutaneo ity of [place] 15:00[place] 00 First dose Medical on [facility] 11/05/20 at 0900, Until Discontinu ed, Routine ondansetron Yes 4mg 4 mg, Slow Univers (ZOFRAN 11-05 IV Push, ity of (PF)) 06:54: Q8HPRN, [place] injection 4 25 Starting Medi carolyn mg [facility] 11/05/20 at 0054, Until Discontinu ed, Routine, Nausea and Vomiting (N/V) albuterol Yes 2.5mg 2.5 mg, Univ ers (PROVENTIL) 11-05 Inhalation it y of 2.5 mg /3 06:01: , Q4HPRN, [place] as mL (0.083 48 Starting Medica l %) [facility] nebulizer 11/05/20 at solution 0001, 2.5 mg Until Discontinu ed, Routine, Shortness of Breath, Wheezing acetaminoph Yes 325mg 325 mg, Un isak en 11-05 Oral, ity of (TYLENOL) 06:01: Q6HPRN, [place] tablet 325 38 Starting Medic al mg [facility] 11/05/20 at 0001, Until Discontinu ed, Routine, [...] ity of infusion 00:00: 04:30 1,000 mL, [place] as 1,000 mL 00 :00 IV Medical Infusion, Branch ONCE, 1 dose, 11/04/20 at 1800, JENNIFER No known No Univers medications ity of [facility] Vital Signs Vital Name Observation Time Observation Value Comments Source Systolic blood 2020-11-05 16:13:40 125 mm[Hg] [facility] pressure [facility] Diastolic blood 2020-11-05 16:13:40 80 mm[Hg] [facility] 2020-11-05 16:13:40 84 /min [facility] Respiratory rate 2020-11-05 16:13:40 18 /min [facility] Oxygen saturation in 2020-11-05 16:13:40 100 /min [facility] Arterial blood by [facility] Pulse oximetry [place] Body temperature 2020-11-05 02:18:58 37.44 Mireya [facility] Body weight 2020-11-04 22:32:00 72.576 kg [facility] Procedures Procedure Date / Time Performed Performing Clinician [facility] e BASIC METABOLIC PANEL 2020-11-05 10:02:00 Randa Shearer [facility] (NA, K, CL, CO2, [facility] GLUCOSE, BUN, CREATININE, CA) CBC WITH DIFF 2020-11-05 10:02:00 Randa Shearer [place] o f [facility] AC PANEL 21 + LACTIC 2020-11-05 06:56:00 aRnda Shearer [facility] ACID [facility] Er BLOOD CULTURE SCREEN 2020-11-05 04:49:00 Javed Sanchez [facility] URINALYSIS 2020-11-05 03:55:00 Javed Sanchez [facility] CT ABDOMEN PELVIS W 2020-11-05 03:06:56 Javed Sanchez [facility] CONTRAST [facility] Er COVID-19 (ID NOW RAPID 2020-11-05 02:49:00 [facility] AC PANEL 21 + LACTIC 2020-11-05 00:05:00 Javed Sanchez [facility] CBC WITH DIFF 2020-11-05 00:01:00 Javed Sanchez [facility] EXTRA TUBE LT. GREEN 2020-11-05 00:01:00 Javed Sanchez [facility] CREATINE KINASE 2020-11-05 00:00:00 Javed Sanchez [facility] TROPONIN I 2020-11-05 00:00:00 Javed Sanchez [facility] COMP. METABOLIC PANEL 2020-11-05 00:00:00 Javed Sanchez [facility] ([id number]) [facility] Er CT HEAD WO CONTRAST 2020-11-04 23:49:20 Javed Sanchez [facility] XR CHEST 2 VW 2020-11-04 23:48:43 Javed Sanchez [facility] Encounters Start End Encounter Admission Attending Care Care Encounter Source Date/Time Date/Time Type Type Clinicians Facility Department ID 2020-11-04 2020-11-05 Emergency Javed Sanchez TRAUMA 1.2. [id number] [facility] 16:34:00 10:20:00 Chiquis Kwok [facility] 350. 1.13.10 [facility] [id number] [place] [id number] [place] [address] Branch 2020-11-04 2020-11-05 [facility] [id number] [facility] 16:34:00 10:20:00 [facility] Test Description Test Time Test Comments Results Result Comments Source BASIC METABOLIC PANEL (NA, K, CL, CO2, GLUCOSE, BUN, 2020-10 11:03:00 CREATININE, CA) Test Item Value Reference Range Interpretation Comme nts NA (test code = 3149345874) 137 mmol/L 135-145 K (test code = 6239419712) 4.1 mmol/L 3.5-5 CL (test code = 0841428964) 103 mmol/L 98-108 CO2 TOTAL (test code = 27 mmol/L 23-31 5293795321) AGAP (test code = 8148173653) 2-16 BUN (test code = 3956032023) 13 mg/dL 7-23 GLUCOSE (test code = 1611616122) 103 mg/dL 70-110 CREATININE (test code = 1.03 mg/dL 0.6-1.25 8969206065) CALCIUM (test code = 8691020974) 9.2 mg/dL 8.6-10.6 eGFR Calculation (Non- mL/min/1.73m2 [place]) (test code = 4682721230) eGFR Calculation ( mL/min/1.73m2 [place]) (test code = 2714179101) HOLLY (test code = HOLLY) Association of [...] or urine or abnormalities in imaging tests). [facility] WITH [id number] 10:48:00 Test Item Value Reference Range Interpretation Comments WBC (test code = See_Comment [Automated message] 6690-2) The system Qumu generated this result transmitted ref erence range: 4.20 - 1 0.70 10*3/?L. The re ference range was not u sed to interpret this result as normal/abnor mal. RBC (test code = See_Comment [Automated message] 789-8) The system Qumu generated this result transmitted ref erence range: [...] RDW-SD (test code 39.3 fL 38.5-51.6 = 27261-8) RDW-CV (test code 12.4 % 12.1-15.4 = 788-0) PLT (test code = See_Comment [Automated message] 777-3) The system Qumu generated this result transmitted ref erence range: 150 - 32 8 10*3/?L. The re ference range was not u sed to interpret this result as normal/abnor mal. MPV (test code = 11.0 fL 9.8-13 23335-1) NRBC/100 WBC (test See_Comment [Automat ed message] code = 3637165065) The syste m which generated this result transmitted ref erence range: 0.0 - 10 .0 /100 WBCs. The refer ence range was not u sed to interpret this result as normal/abnor mal. NRBC x10^3 (test <0.01 See_Comment [Automated message] code = 2660948634) The syste m which generated this result transmitted ref erence range: 10*3/?L. The reference range was not used to interpr et this result as normal/abnormal . GRAN MAT (NEUT) % 62.2 % (test code = 770-8) IMM GRAN % (test 0.20 % code = 7205149422) LYMPH % (test code 24.9 % = 736-9) MONO % (test code 9.5 % = 5905-5) EOS % (test code = 2.7 % 713-8) BASO % (test code 0.5 % = 706-2) GRAN MAT 5.10 10*3/uL 1.99-6.95 x10^3(ANC) (test code = 7266824905) IMM GRAN x10^3 <0.03 0-0.06 (test code = 0554206711) LYMPH x10^3 (test 2.04 10*3/uL 1.09-3.23 code = 731-0) MONO x10^3 (test 0.78 10*3/uL 0.36-1.02 code = 742-7) EOS x10^3 (test 0.22 10*3/uL 0.06-0.53 code = 711-2) BASO x10^3 (test 0.04 10*3/uL 0.01-0.09 code = 704-7) [facility] + LACTIC [id number] 07:00:00 Test Item Value Reference Range Interpretation Comments PH (test code = 7.32-7.42 L 8711362841) PCO2 PERLITA (test code = See_Comment [Auto mated 3880290778) message] The sy stem which generated this result transmitted reference range : 41 - 51 mmHg. The reference range was not used to interpret this result as normal/abnormal . PO2 PERLITA (test code = See_Comment [Autom ated 3116691782) message] The sy stem which generated this result transmitted reference range : 25 - 40 mmHg. The reference range was not used to interpret this result as normal/abnormal . HCO3 PERLITA (test code = See_Comment [Auto mated 1832193350) message] The sy stem which generated this result transmitted reference range : 24 - 28 mEq/L. The reference range was not used to interpret this result as normal/abnormal . AC VBE(BEAKER) (test mEq/L code = 5407039206) THB PERLITA (test code = 14.4 g/dL 13.5-18 8641414311) %O2HB PERLITA (test code = 60.0 % 52-63 3096505892) %COHB PERLITA (test code = 0.9 % 0-1.5 9553505019) %METHB PERLITA (test code = 0.3 % 0.4-1.5 L 1375611018) VOL%O2 PERLITA (test code = 12.1 % 6-12 H 1848841658) NA (test code = 137 mmol/L 135-145 1075768268) K+ (test code = 4.3 mmol/L 3.5-5 8326454347) AC CA IONZ (test code = 4.90 mg/dL 4.5-5.3 3160804321) GLUCOSE (test code = 103 mg/dL 70-110 9067585564) LACTIC ACID (test code 1.25 mmol/L 0.5-2.2 = 6772864035) Lab Interpretation Abnormal (test code = 75722-1) [facility]2021-02-17 04:16:00 Test Item Value Reference Range Interpretation Comments APPEARANCE (test code = Clear Clear 9711403620) COLOR (test code = Yellow Yellow 6086186221) PH (test code = 4.8-8.0 7910431667) SP GRAVITY (test code = >1.060 1.003-1.030 H 9439777718) GLU U QUAL (test code = Normal Normal 4648820086) BLOOD (test code = Negative Negative 3465714181) KETONES (test code = 5 mg/dL Negative A 0773505585) PROTEIN (test code = Negative Negative 2887-8) UROBILIN (test code = Normal Normal 7940833562) BILIRUBIN (test code = Negative Negative 0797754274) NITRITE (test code = Negative Negative 9593136562) LEUK VANESSA (test code = Negative Negative 7474662942) RBC/HPF (test code = See_Comment H [Autom ated message] 9034278878) The system Qumu generated this result transmitted ref erence range: 0 - 3 HP F. The reference range was not used to int erpret this result as normal/abnormal . WBC/HPF (test code = See_Comment [Autom ated message] 8395196191) The system Qumu generated this result transmitted ref erence range: 0 - 5 HP F. The reference range was not used to int erpret this result as normal/abnormal . BACTERIA (test code = Negative Negative 8971408892) MUCOUS (test code = Slight Negative LPF A 3199606561) SQ EPITH (test code = <1 See_Comment [Auto mated message] 6358667469) The system Qumu generated this result transmitted ref erence range: <=2 HPF. The reference range was not used to int erpret this result as normal/abnormal . Lab Interpretation (test Abnormal code = 28355-6) [facility] ABDOMEN PELVIS W [id number] 03:59:43 No acute intra-abdominal abnormality. Preliminary Report [...] reviewed this study and agree withthe above report.[facility]COVID-19 (ID NOW RAPID TESTING)2020-11-05 03:29:00 Test Item Value Reference Range Interpretation Comments SARS-CoV-2 Rapid ID NOW Not Detected Not Detected (test code = 76215-5) HOLLY (test code = HOLLY) ID NOW COVID-19 Assay is an isothermal nucleic acid amplification test intended for the qualitative detection of nucleic acid from SARS-CoV-2 viral RNA in nasopharyngeal (ASSET PROTECTION SPECIALIST) specimens. It is used under Emergency Use [...] indicated. Lab Interpretation Normal (test code = 66467-7) [facility]CT HEAD WO [id number] 01:30:56 No acute intracranial hemorrhage or mass [...] The calvarium and central skullbase are unremarkable. [facility], Radiant Results Inft User - 11/04/2020 [...] reviewed this study and agree with theabove report.[facility] Resources[facility]Y I 2020-11-05 00:48:00 Test Item Value Reference Range Interpretation Comments TROPONIN I (test 0.006 ng/mL See_Comment [Automated code = 5541351452) message] The system which generated this result [...] ? Lab Interpretation Normal (test code = 99448-9) [facility]. METABOLIC PANEL (39654)2020-11-05 00:33:00 Test Item Value Reference Range Interpretation Comments NA (test code = 139 mmol/L 135-145 6150744600) K (test code = 4.5 mmol/L 3.5-5 4918744808) CL (test code = 101 mmol/L 98-108 5203309052) CO2 TOTAL (test code = 29 mmol/L 23-31 8506837967) AGAP (test code = 2-16 0134434860) BUN (test code = 14 mg/dL 7-23 7430712366) GLUCOSE (test code = 109 mg/dL 70-110 0094945921) CREATININE (test code = 0.93 mg/dL 0.6-1.25 1664993200) TOTAL BILI (test code = 0.7 mg/dL 0.1-1.2 8654115276) CALCIUM (test code = 10.0 mg/dL 8.6-10.6 1544048466) T PROTEIN (test code = 8.4 g/dL 6.3-8.2 H 6922798432) ALBUMIN (test code = 5.1 g/dL 3.5-5 H 3704921368) ALK PHOS (test code = 60 U/L 34-122 0130484293) ALTv (test code = 24 U/L 550 1742-6) AST(SGOT) (test code = 31 U/L 13-40 0916031297) eGFR Calculation mL/min/1.73m2 (Non-) (test code = 0255435400) eGFR Calculation mL/min/1.73m2 () (test code = 5359709452) HOLLY (test code = HOLLY) Association of [...] tests). Lab Interpretation Abnormal (test code = 45559-2) [facility] [place] [facility] ResourcesCREATINE [id number] 00:33:00 Test Item Value Reference Range Interpretation Comments CK (test code = 6210625013) 215 U/L 33-194 H Lab Interpretation (test code = Abnormal 70255-0) [facility] ResourcesXR CHEST 2 [id number] 00:14:09 No evidence of acute cardiopulmonary disease. [...] reviewed this study and agree withthe above report.[facility] with [id number] 00:13:00 Test Item Value Reference Range Interpretation Comments WBC (test code = See_Comment H [Automated 4290-2) message] The system which generated this result transmit demetrio reference range : 4.20 - 10.70 10*3/?L. The reference range was not used to interpret this result as normal/abnormal . RBC (test code = See_Comment [Automated 429-8) message] The system which generated this result [...] RDW-SD (test code = 38.5 fL 38.5-51.6 68163-8) RDW-CV (test code = 12.3 % 12.1-15.4 788-0) PLT (test code = See_Comment [Automated 777-3) message] The system which generated this result transmit demetrio reference range : 150 - 328 10*3/ ?L. The reference range was not u sed to interpret th is result as normal/abnormal . MPV (test code = 10.3 fL 9.8-13 76012-0) NRBC/100 WBC (test See_Comment [Automat ed code = 7119870422) message] The system which generated this result transmit demetrio reference range : 0.0 - 10.0 /100 WBCs. The reference range was not used to interpret this result as normal/abnormal . NRBC x10^3 (test code <0.01 See_Comment [Auto mated = 1225845674) message] The system which generated this result transmit demetrio reference range : 10*3/?L. The reference range was not used to interpret this result as normal/abnormal . GRAN MAT (NEUT) % 85.9 % (test code = 770-8) IMM GRAN % (test code 0.40 % = 5374209555) LYMPH % (test code = 8.9 % 736-9) MONO % (test code = 4.4 % 5905-5) EOS % (test code = 0.1 % 713-8) BASO % (test code = 0.3 % 706-2) GRAN MAT x10^3(ANC) 11.65 10*3/uL 1.99-6.95 H (test code = 6751055619) IMM GRAN x10^3 (test 0.05 10*3/uL 0-0.06 code = 7685867212) LYMPH x10^3 (test code 1.21 10*3/uL 1.09-3.23 = 731-0) MONO x10^3 (test code 0.59 10*3/uL 0.36-1.02 = 742-7) EOS x10^3 (test code = <0.03 0.06-0.53 L 711-2) BASO x10^3 (test code 0.04 10*3/uL 0.01-0.09 = 704-7) Lab Interpretation Abnormal (test code = 09475-9) [facility] PAN[facility] 21 + LACTIC [id number] 00:07:00 Test Item Value Reference Range Interpretation Comments PH (test code = 7.32-7.42 L 5359838208) PCO2 PERLITA (test code = See_Comment H [Auto mated 7109819242) message] The sy stem which generated this result transmitted reference range : 41 - 51 mmHg. The reference range was not used to interpret this result as normal/abnormal . PO2 PERLITA (test code = <16 See_Comment L [Autom ated 9719486919) message] The sy stem which generated this result transmitted reference range : 25 - 40 mmHg. The reference range was not used to interpret this result as normal/abnormal . HCO3 PERLITA (test code = See_Comment [Auto mated 6756372165) message] The sy stem which generated this result transmitted reference range : 24 - 28 mEq/L. The reference range was not used to interpret this result as normal/abnormal . AC VBE(BEAKER) (test mEq/L code = 9985505541) THB PERLITA (test code = 16.2 g/dL 13.5-18 3995391143) %O2HB PERLITA (test code = 28.4 % 52-63 L 3840255107) %COHB PERLITA (test code = 13.5 % 0-1.5 H 3048945593) %METHB PERLITA (test code = 0.3 % 0.4-1.5 L 7447082100) VOL%O2 PERLITA (test code = 6.4 % 6-12 7240636457) NA (test code = 139 mmol/L 135-145 7947376235) K+ (test code = 4.3 mmol/L 3.5-5 8225869426) AC CA IONZ (test code = 5.00 mg/dL 4.5-5.3 4688359480) GLUCOSE (test code = 111 mg/dL 70-110 H 6962571390) LACTIC ACID (test code 1.70 mmol/L 0.5-2.2 = 5810042567) Lab Interpretation Abnormal (test code = 55098-0) [facility]"
[2023-07-08 10:09] LABS: SARS-COV-2 RT PCR NEGATIVE (NEGATIVE)
--- NOTE | 2023-07-08 11:05 | ER ---
Nurse's Notes [facility] Name: Neri Donahue Age: 33 yrs Sex: Male : 1990 Arrival Date: 07/08/2023 Time: 09:02 Bed 18 Private MD: Diagnosis: Influenza due to other identified influenza virus with other respiratory manifestations Presentation: 07/08 09:18 Chief complaint: Cough, body aches, runny nose, and fever x 3 days. TMAX 100. hb Coronavirus screen: Client presents with at least one sign or symptom that may indicate coronavirus-19. Provider contacted for isolation considerations. Ebola Screen: No symptoms or risks identified at this time. Initial Sepsis Screen: Does the patient meet any 2 criteria? No. Patient's initial sepsis screen is negative. Does the patient have a suspected source of infection? No. Patient's initial sepsis screen is negative. Risk Assessment: Do you want to hurt yourself or someone else? Patient reports no desire to harm self or others. Onset of symptoms was July 06, 2023. 09:18 Method Of Arrival: Ambulatory hb 09:18 Acuity: MAZIN 4 hb Historical: - Allergies: 09:19 No Known Allergies; hb - Home Meds: 09:19 None [Active]; hb - PMHx: 09:19 None; hb - PSHx: 09:19 None; hb - Immunization history:: Adult Immunizations up to date. - Social history:: Smoking status: Patient denies any tobacco usage or history of. Screenin:26 [facility] ED Fall Risk Assessment (Adult) History of falling in the last 3 months, kd3 including since admission No falls in past 3 months (0 pts) Confusion or Disorientation No (0 pts) Intoxicated or Sedated No (0 pts) Impaired Gait No (0 pts) Mobility Assist Device Used No (0 pt) Altered Elimination No (0 pt) Score/Fall Risk Level 0 - 2 = Low Risk Maintained a safe environment. Abuse screen: Denies threats or abuse. Denies injuries from another. Nutritional screening: No deficits noted. Tuberculosis screening: No symptoms or risk factors identified. Assessment: 10:26 General: Appears in no apparent distress. Behavior is calm, cooperative. Pain: Denies kd3 pain. Neuro: Level of Consciousness is awake, alert, obeys commands, Oriented to person, place, time, situation. Cardiovascular: Patient's skin is warm and dry. Respiratory: Airway is patent Trachea midline Respiratory effort is even, unlabored, Respiratory pattern is regular, symmetrical. Vital Signs: 09:20 BP 153 / 80; Pulse 105; Resp 18; Temp 99.4; Pulse Ox 98% on R/A; Weight 62 kg; Height 5 hb ft. 7 in. ; Pain 4/10; 11:05 BP 142 / 71; Pulse 98; Resp 16; Pulse Ox 99% on R/A; kd3 09:20 Body Mass Index 21.41 (62.00 kg, 170.18 cm) hb 09:20 Pain Scale: Adult hb ED Course: 09:10 Patient arrived in ED. ts1 09:10 Kimberly Man FNP [facility] 7 09:10 Robert Musa MD is Attending Physician. [facility] 09:18 Triage completed. hb 09:19 Arm band placed on. hb 09:26 COVID-19/FLU A+B Sent. 10:26 Mary García, RN is Primary Nurse. kd3 10:26 No provider procedures requiring assistance completed. Patient did not have IV access kd3 during this emergency room visit. 11:07 Patient has correct armband on for positive identification. Provided Education on: flu. kd3 Administered Medications: No medications were administered Medication: 10:27 VIS not applicable for this client. kd3 Outcome: 11:05 Discharge ordered by . 7 11:06 Discharged to home ambulatory, kd3 11:06 Condition: stable 11:06 Discharge instructions given to patient, family, Instructed on discharge instructions, follow up and referral plans. Demonstrated understanding of instructions, follow-up care, 11:21 Patient left the ED. kd3 Signatures: Roseanne Feng RN ZOILA Mary García RN ZOILA 3 Kimberly Man FNP [employer] Bertha Recinos [facility] ts1
--- NOTE | 2023-07-08 11:05 | EDPHYS ---
Physician Documentation [facility] Name: Neri Donahue Age: 33 yrs Sex: Male : 1990 Arrival Date: 07/08/2023 Time: 09:02 Bed 18 Private MD: ED Physician Robert Musa HPI: 07/08 09:19 This 33 yrs old Male presents to ER via Ambulatory with complaints of Fever, jh7 Cough. 09:19 The patient reports fever, that was measured at 100.6 degrees Fahrenheit. Onset: The jh7 symptoms/episode began/occurred 2 day(s) ago. Associated signs and symptoms: Pertinent positives: chills, cough, runny nose, Pertinent negatives: abdominal pain, chest pain, shortness of breath. The patient's daughter tested positive for flu yesterday.. Historical: - Allergies: 09:19 No Known Allergies; hb - Home Meds: 09:19 None [Active]; hb - PMHx: 09:19 None; hb - PSHx: 09:19 None; hb - Immunization history:: Adult Immunizations up to date. - Social history:: Smoking status: Patient denies any tobacco usage or history of. ROS: 09:19 Eyes: Negative for injury, pain, redness, and discharge, jh7 09:19 Neck: Negative for injury, pain, and swelling, Cardiovascular: Negative for chest pain, palpitations, and edema, Abdomen/GI: Negative for abdominal pain, nausea, vomiting, diarrhea, and constipation, Back: Negative for injury and pain, MS/Extremity: Negative for injury and deformity, Skin: Negative for injury, rash, and discoloration, Neuro: Negative for headache, weakness, numbness, tingling, and seizure, 09:19 Constitutional: Positive for body aches, chills, fever, 09:19 ENT: Positive for rhinorrhea, 09:19 Respiratory: Positive for cough, Negative for shortness of breath, wheezing, 09:19 All other systems are negative, Exam: 09:19 Constitutional: This is a well developed, well nourished patient who is awake, alert, jh7 and in no acute distress. Head/Face: Normocephalic, atraumatic. Neck: Trachea midline, no thyromegaly or masses palpated, and no cervical lymphadenopathy. Supple, full range of motion without nuchal rigidity, or vertebral point tenderness. No Meningismus. Cardiovascular: Regular rate and rhythm with a normal S1 and S2. No gallops, murmurs, or rubs. Normal PMI, no JVD. No pulse deficits. Respiratory: Lungs have equal breath sounds bilaterally, clear to auscultation and percussion. No rales, rhonchi or wheezes noted. No increased work of breathing, no retractions or nasal flaring. Abdomen/GI: Soft, non-tender, with normal bowel sounds. No distension or tympany. No guarding or rebound. No evidence of tenderness throughout. Back: No spinal tenderness. No costovertebral tenderness. Full range of motion. Skin: Warm, dry with normal turgor. Normal color with no rashes, no lesions, and no evidence of cellulitis. MS/ Extremity: Pulses equal, no cyanosis. Neurovascular intact. Full, normal range of motion. Neuro: Awake and alert, GCS 15, oriented to person, place, time, and situation. Motor strength 5/5 in all extremities. Sensory grossly intact. Normal gait. 09:19 ENT: Nose: nasal drainage, and is seen coming from both nares, that is clear, Vital Signs: 09:20 BP 153 / 80; Pulse 105; Resp 18; Temp 99.4; Pulse Ox 98% on R/A; Weight 62 kg; Height 5 hb ft. 7 in. ; Pain 4/10; 11:05 BP 142 / 71; Pulse 98; Resp 16; Pulse Ox 99% on R/A; kd3 09:20 Body Mass Index 21.41 (62.00 kg, 170.18 cm) hb 09:20 Pain Scale: Adult hb MDM: 09:10 Patient medically screened. [facility] 11:10 Differential diagnosis: viral Infection, URI, Influenza, COVID. Data reviewed: [facility] signs, nurses notes. Counseling: I had a detailed discussion with the patient and/or guardian regarding the historical points, exam findings, and any diagnostic results supporting the discharge/admit diagnosis, to return to the emergency department if symptoms worsen or persist or if there are any questions or concerns that arise at home. 07/08 09:19 Order name: COVID-19/FLU A+B; Complete Time: 11:04 hb Administered Medications: No medications were administered Disposition: 15:31 Co-signature as Attending Physician, Robert Musa MD I agree with the assessment and 3 plan of care. Disposition Summary: 07/08/23 11:05 Discharge Ordered Notes: Location: Home [facility] Problem: new [facility] Symptoms: are unchanged [facility] Condition: Stable [facility] Diagnosis - Influenza due to other identified influenza virus with other respiratory [facility] manifestations Followup: [facility] - With: Private Physician - When: 2 - 3 days - Reason: Recheck today's complaints Discharge Instructions: - Discharge Summary Sheet [facility] - Influenza, Adult [facility] Forms: - Medication Reconciliation Form [facility] - Thank You Letter [facility] - Patient Portal Instructions [facility] - Leadership Thank You Letter [facility] Prescriptions: - Bromfed DM 2-30-10 mg/5 mL Oral syrup - administer 10 milliliter ORAL route every 4-6 hours As needed as needed for jh7 allergy symptoms; 240 milliliter; Refills: 0, Product Selection Permitted - Tamiflu 75 mg Oral capsule - take 1 tablet ORAL route every 12 hours for 5 days; 10 tablet; Refills: 0, jh7 Product Selection Permitted Signatures: Dispatcher [employer] Robert Olsen MD MD cp3 Roseanne Feng, RN RN Kimberly Man FNP [facility]
[2023-07-08 11:33] VITALS: TEMP 99.4
[2023-07-08 11:35] VITALS: BP 142/71; O2SAT 99
== END 2023-07-08 11:21 | disposition home or self-care (01) ==
LOC: ER 09:02
DX: J10.1 Influenza due to other identified influenza virus with other respiratory manifestations (principal); Z20.822 Contact with and (suspected) exposure to COVID-19
CPT/HCPCS: 0240U; 99283